=== PATIENT | female | born 1980 | race Two or more races ===

== ENCOUNTER 2018-05-22 22:56 | Emergency (ER) | payer OTHER ==
[2018-05-22] MEDS ORDERED: HYDROMORPHONE HCL INJ/PF 2 MG/ML AMPULE IV ONE (23:13)
[2018-05-22] MEDS ORDERED: NORMAL SALINE 1000 ML 1,000 ML IV ONE (23:14)
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
[2018-05-23] MEDS ORDERED: PROPOFOL INJ 200 MG/20 ML VIAL IV ONE (00:10)
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
[2018-05-23 01:22] LABS: ABSOLUTE LYMPHOCYTES (AUTO) 1.3 10^3/uL (0.5-4.7); BASOPHILS % (AUTO) 0.2 % (0-2); EOSINOPHILS % (AUTO) 0.1 % (0-6); HEMATOCRIT 39.7 % (36.0-47.0); HEMOGLOBIN 13.6 g/dL (12.0-15.5); LYMPHOCYTES % (AUTO) 6.9 % (13-45); MEAN CORPUSCULAR HEMOGLOBIN 32.6 pg (27.0-33.4); MEAN CORPUSCULAR HGB CONC 34.1 g/dL (32.0-36.0); MEAN CORPUSCULAR VOLUME 96 fl (80-97); MONOCYTES % (AUTO) 5.7 % (3-13); PLATELET COUNT 203 10^3/uL (150-450); RED BLOOD COUNT 4.15 10^6/uL (3.72-5.28); SEGMENTED NEUTROPHILS % (AUTO) 87.1 % (42-78); TOTAL CELLS COUNTED % (AUTO) 100 %; WHITE BLOOD COUNT 18.4 10^3/uL (4.0-10.5)
--- NOTE | 2018-05-23 01:23 | RADIOLOGY REPORT (SQ) ---
2 VIEWS OF THE LEFT FOREARM HISTORY: Bedside fracture reduction. COMPARISON: 05/22/2018 FINDINGS/IMPRESSION: Overlying cast obscures fine osseous detail. Redemonstrated mildly displaced, comminuted, angulated fractures of the mid ulnar and radial shafts. There has been interval reduction in the amount of displacement. Diffuse overlying soft tissue swelling.
[2018-05-23 01:40] LABS: ALANINE AMINOTRANSFERASE 23 U/L (9-52); ALBUMIN 4.7 g/dL (3.5-5.0); ALKALINE PHOSPHATASE 39 U/L (38-126); ANION GAP 13 (5-19); ASPARTATE AMINO TRANSFERASE 33 U/L (14-36); BILIRUBIN,DIRECT 0.3 mg/dL (0.0-0.4); BILIRUBIN,TOTAL 0.3 mg/dL (0.2-1.3); BLOOD UREA NITROGEN 11 mg/dL (7-20); CALCIUM 9.2 mg/dL (8.4-10.2); CARBON DIOXIDE 23 mmol/L (22-30); CHLORIDE 110 mmol/L (98-107); GLUCOSE 99 mg/dL (75-110); POTASSIUM 3.8 mmol/L (3.6-5.0); SODIUM 145.7 mmol/L (137-145); TOTAL PROTEIN 7.2 g/dL (6.3-8.2)
[2018-05-23] MEDS ORDERED: HYDROCODONE/ACETAMINOPHEN 5-325 MG TABLET PO ONE (02:22)
[2018-05-23] MEDS ORDERED: HYDROCODONE/ACETAMINOPHEN 5-325 MG (6 TAB/ER DISP) PO PRN (02:22)
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
[2018-05-23 04:50] VITALS: BP 132/75
--- NOTE | 2018-05-23 12:34 | RADIOLOGY REPORT (SQ) ---
EXAM DESCRIPTION: NOT FOR OR FLUORO TO 1 HR COMPLETED DATE/TIME: 05/23/2018 1:12 am REASON FOR STUDY: bedside fracture reduction COMPARISON: None. FLUOROSCOPY TIME: Less than one hour. 4 seconds. LIMITATIONS: None. PROCEDURE: Fluoroscopy was provided for intraprocedural guidance. No images were stored in the PACS system. IMPRESSION: Intraprocedural fluoroscopy was provided. No images were stored in the PACS system. Please Correlate with the procedure report. COMMENT: Quality ID 145: Final reports for procedures using fluoroscopy that document radiation exp osure indices, or exposure time and number of fluorographic images (if radiation exposure indices are not available) TECHNICAL DOCUMENTATION: JOB ID: [id number] [employer]- All Rights Reserved Reading location - IP/workstation name: [email or web address]
== END 2018-05-23 04:50 | disposition home or self-care (01) ==
LOC: ER 22:56
DX: S52.252A Displaced comminuted fracture of shaft of ulna, left arm, initial encounter for closed fracture (principal); S52.352A Displaced comminuted fracture of shaft of radius, left arm, initial encounter for closed fracture; S00.93XA Contusion of unspecified part of head, initial encounter; V49.9XXA Car occupant (driver) (passenger) injured in unspecified traffic accident, initial encounter; R22.0 Localized swelling, mass and lump, head
CPT/HCPCS: 99284; 96361; 99152; 96374; 36415; 85025; 80053; 73090 ×2; 76000; 70450; 72125; 25565; J1170; J2704

== ENCOUNTER 2018-05-26 09:19 | Day surgery (SDC) | payer OTHER ==
[~2018-05-26 09:19] MED LIST: CEFAZOLIN 2 GM/D5W RTU 2 GM/50 ML RTUPB IV PRN
[2018-05-26] MEDS ORDERED: ONDANSETRON HCL INJ/PF 4 MG/2 ML SDV ONE (09:26)
[2018-05-26] MEDS ORDERED: SUCCINYLCHOLINE CHLORIDE INJ 200 MG/10 ML VIAL ONE (09:26)
[2018-05-26] MEDS ORDERED: KETOROLAC TROMETHAMINE 60 MG/2 ML SDV ONE (09:26)
[2018-05-26] MEDS ORDERED: DEXAMETHASONE SOD PHOSPHATE INJ 4 MG/1 ML VIAL ONE (09:26)
[2018-05-26 10:42] LABS: APPEARANCE,URINE CLOUDY; BILIRUBIN,URINE NEGATIVE (NEGATIVE); COLOR,URINE YELLOW; GLUCOSE, URINE NEGATIVE (NEGATIVE); KETONES,URINE NEGATIVE (NEGATIVE); LEUKOCYTE ESTERASE,URINE SMALL (NEGATIVE); NITRITE,URINE NEGATIVE (NEGATIVE); PROTEIN,URINE NEGATIVE (NEGATIVE); URINE SPECIFIC GRAVITY 1.019; UROBILINOGEN,URINE NEGATIVE mg/dL (<2.0)
[2018-05-26 11:14] LABS: HEMATOCRIT 40.1 % (36.0-47.0); HEMOGLOBIN 13.8 g/dL (12.0-15.5); MEAN CORPUSCULAR HEMOGLOBIN 32.4 pg (27.0-33.4); MEAN CORPUSCULAR HGB CONC 34.4 g/dL (32.0-36.0); MEAN CORPUSCULAR VOLUME 94 fl (80-97); PLATELET COUNT 204 10^3/uL (150-450); RED BLOOD COUNT 4.25 10^6/uL (3.72-5.28); RED CELL DISTRIBUTION WIDTH 13.7 % (11.5-14.0); WHITE BLOOD COUNT 6.4 10^3/uL (4.0-10.5)
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
[2018-05-26 11:37] LABS: ANION GAP 11 (5-19); BLOOD UREA NITROGEN 12 mg/dL (7-20); CALCIUM 10.1 mg/dL (8.4-10.2); CARBON DIOXIDE 28 mmol/L (22-30); CHLORIDE 103 mmol/L (98-107); GLUCOSE 93 mg/dL (75-110); POTASSIUM 4.3 mmol/L (3.6-5.0); SODIUM 142.1 mmol/L (137-145)
[2018-05-26] MEDS ORDERED: FENTANYL CITRATE INJ/PF 100 MCG/2 ML AMPUL ONE ×3 (13:05→16:09)
[2018-05-26] MEDS ORDERED: MIDAZOLAM 2 MG/2 ML INJ ONE ×2 (13:06→13:30)
[2018-05-26] MEDS ORDERED: HYDROMORPHONE HCL INJ/PF 2 MG/ML AMPULE ONE ×2 (13:06→17:35)
[2018-05-26] MEDS ORDERED: ACETAMINOPHEN 0 MG/0 ML RTUPB IV ONE (13:06)
[2018-05-26] MEDS ORDERED: PROPOFOL INJ 200 MG/20 ML VIAL IV ONE ×2 (13:06→13:30)
[2018-05-26] MEDS ORDERED: LIDOCAINE 2% INJ-PF (20 MG/ML) 10 ML AMPUL ONE (13:08)
[2018-05-26] MEDS ORDERED: CEFAZOLIN 2 GM/D5W RTU 2 GM/50 ML RTUPB IV ONE (13:12)
[2018-05-26] MEDS ORDERED: ACETAMINOPHEN 1,000 MG/100 ML RTUPB IV ONE (13:30)
[2018-05-26] MEDS ORDERED: MEPERIDINE HCL/PF INJ 25 MG/1 ML DISP.SYRIN IV PRN (13:53)
[2018-05-26] MEDS ORDERED: MORPHINE SULFATE 10 MG/ML INJ IV PRN (13:53)
[2018-05-26] MEDS ORDERED: PROMETHAZINE HCL INJ 25 MG/1 ML VIAL IV PRN (13:53)
[2018-05-26] MEDS ORDERED: FENTANYL CITRATE INJ/PF 100 MCG/2 ML AMPUL IV PRN ×3 (13:53)
[2018-05-26] MEDS ORDERED: DIPHENHYDRAMINE HCL 50 MG/ML VIAL IV PRN (13:53)
--- NOTE | 2018-05-26 15:48 | Operative Report ---
Operative Report DATE OF SURGERY: 05/26/18 PREOPERATIVE DIAGNOSIS: Comminuted displaced left both bone forearm fracture POSTOPERATIVE DIAGNOSIS: Same OPERATION: Open reduction internal fixation of left radius and ulna SURGEON: KIALEE ASTORGA ANESTHESIA: GA COMPLICATIONS: None ESTIMATED BLOOD LOSS: 20 mL INTRAOPERATIVE FINDINGS: As above PROCEDURE: Patient was brought to the operating room where she was successfully given general anesthetic. A tourniquet was applied to the left upper extremity. Number was applied and then the left upper extremity was prepped and draped in a normal sterile surgical fashion. Timeout was done identifying the left forearm at the correct site. Esmarch was used to exsanguinate the extremity and the tourniquet was inflated at 250 mmHg. First decided to address the ulna so I did a longitudinal incision on the ulna and dissected with Metzenbaum scissors. I reflected the muscle off of the bone and noted that had difficulty assessing only the length but the rotation so I aborted at this point and turned my attention to the radius where I did a standard approach of Pancho. I noted the superficial radial nerve was swollen and in the fracture site. This is consistent with her paresthesias of the superficial radial nerve preoperatively. I did dissect the nerve and it was intact both distal and proximally. I was able then to find the both ends of the radius and will leave the tissue with a periosteal elevator. I used a 8 hole plate and I bridged the butterfly portion of the fracture. At least had a 50% cortical apposition to help me assess the length and rotation. I placed about a small 10-15 degree bend on the radius and was successfully able to use proper A-O technique and placed a screw proximal and distal to compress the fracture. I then reamed drilled the remaining holes and placed the appropriate screws after measuring. C-arm pictures were taken showing proper length of screws and fixation and reduction. Once this is done I was able to go back to the ulnar side and bring out to length the bone edges and get my rotation and put the 2 butterfly fragments back in position. I bridged this with a 9 holed compression plate and held it with a lobster claws. I was successfully able to place the screw both proximal and distal and take pictures with C-arm to confirm the length and rotation. At this point and I was able then to place my screws on the remaining proximal distal holes. Final pictures were taken of both AP and lateral showing the reduction. There was a butterfly fragment of the radius that was held by soft tissue and I left it in place. At time of closure I was able to then reapproximate the musculature to the fascial tissue and closed the subcutaneous tissue with 0 Vicryl and 2-0 Vicryl and peyton for skin. This was done first to the ulnar side and then on the radial side I only reapproximated the subtenons tissue with 0 Vicryl 2-0 Vicryl for dermis and then peyton for skin. Extremity was cleaned and the tourniquet was let down and then Xeroform and 4 x 4 dressing was applied and then a volar splint was given placed on the patient and overwrapped with Avery bandage. Once the splint had hardened drapes were removed and the patient was successfully extubated and sent to PACU in stable condition
[2018-05-26] MEDS ORDERED: OXYCODONE-ACETAMINOPHEN 5-325 MG TABLET PO PRN ×2 (15:50)
--- NOTE | 2018-05-26 15:50 | Discharge Summary ---
Discharge Summary (SDC) - Discharge Final Diagnosis: Status post ORIF of left radius and ulna Date of Surgery: 05/26/18 Discharge Date: 05/26/18 Treatment or Instructions: Keep the splint dry clean and intact. Nonweightbearing left upper extremity. Sling for comfort. Ice and elevate. Follow-up in 10-14 days. Prescriptions: Oxycodone HCl/Acetaminophen [Percocet 5-325 mg Tablet] 1 - 2 tab PO ASDIR PRN # 40 tablet PRN Reason: Discharge Diet: As Tolerated Respiratory Treatments at Home: Deep Breathing/Coughing Discharge Activity: No Driving - While taking narcotics, No Lifting/Push/Pulling , Slowly Increase Activity, Walk Frequently Home Care Assistance: None Needed Report the Following to Your Physician Immediately: Shortness of Breath, Vomiting, Increase in Pain, Fever over 101 Degrees, Unusual Bleeding, Redness, Swelling, Warmth, Increased Soreness, Drainage-Yellow, Drainage-Fuller, Drainage- Green, Drainage-Foul Smelling
--- NOTE | 2018-05-26 16:06 | RADIOLOGY REPORT (SQ) ---
EXAM DESCRIPTION: FOREARM LEFT; NO CHG FLUORO COMPLETED DATE/TIME: 05/26/2018 3:52 pm REASON FOR STUDY: ORIF LT FOREARM S52.202A UNSP FRACTURE OF SHAFT OF LEFT ULNA, INIT FOR CLOS S52. 302A UNSP FRACTURE OF SHAFT OF LEFT RADIUS, INIT FOR JENNIFER COMPARISON: Left forearm films 05/23/2018 FLUOROSCOPY TIME: 0.4 minutes 3 digital radiographic images saved to PACS. TECHNIQUE: Intra-operative images acquired during surgical procedure to evaluate progress. NUMBER OF IMAGES: 3 digital radiographic images LIMITATIONS: None. FINDINGS: Intra procedural imaging and fluoro during ORIF of mid diaphysis left radius and ulna frac tures with fixation plates and anchoring screws. Please see the operative report for further details IMPRESSION: Intra procedural imaging and fluoro COMMENT: Quality ID 145: Final reports for procedures using fluoroscopy that document radiation exp osure indices, or exposure time and number of fluorographic images (if radiation exposure indices are not available) Please consult full operative report of the attending physician for description of the procedure. TECHNICAL DOCUMENTATION: JOB ID: [id number] [employer]- All Rights Reserved Reading location - IP/workstation name: [facility]
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
[2018-05-26] MEDS: FENTANYL CITRATE INJ/PF 100 MCG/2 ML AMPUL ONE ×2 (16:39→16:50)
[2018-05-26] MEDS ORDERED: OXYCODONE-ACETAMINOPHEN 5-325 MG TABLET ONE ×2 (17:26→19:40)
[2018-05-26] MEDS ORDERED: PROMETHAZINE HCL INJ 25 MG/1 ML VIAL ONE (17:34)
--- NOTE | 2018-05-26 20:25 | EKG REPORT ---
SEVERITY:- NORMAL ECG - SINUS RHYTHM EARLY REPOL CHANGES : Confirmed by: Lou Russell 26-May-2018 20:24:33
[2018-05-26] MEDS ORDERED: ONDANSETRON 4 MG TAB.RAPDIS SL PRN (20:29)
[2018-05-26 21:24] VITALS: BP 134/84
== END 2018-05-26 21:45 | disposition home or self-care (01) ==
LOC: OROUT 09:19 → 4S 20:13 → OROUT 21:45
PROVIDERS: ATTEND Orthopaedic Surgery
DX: S52.202A Unspecified fracture of shaft of left ulna, initial encounter for closed fracture (principal); S52.302A Unspecified fracture of shaft of left radius, initial encounter for closed fracture; X58.XXXA Exposure to other specified factors, initial encounter; J45.909 Unspecified asthma, uncomplicated
CPT/HCPCS: 36415; 85027; 81025; 80048; 81001; 71045; 73090; 93005; 93010; 25575; C1713 ×3; J2250; J1100; J1885; J3010; J1170; J2550; J0330; J2405; J2704; J3490; J0690; J0131; 01830